=== PATIENT | male | born 1945 | race African-American/Black ===

== ENCOUNTER 2018-02-16 12:08 | Outpatient (CLI) | payer MEDICARE ==
[2018-02-16 13:00] LABS: Blood Urea Nitrogen 11 mg/dL (9-20)
[2018-02-16] MEDS ORDERED: NACL 0.9% 50 ML ONE (13:16)
--- NOTE | 2018-02-16 17:04 | Cat Scan Report ---
FINAL REPORT EXAM: CT NECK W CON HISTORY: DYSPHAGIA TECHNIQUE: Spiral CT scanning of the neck performed after the uneventful administration of IV contrast. Multiplanar reformations. PRIORS: None. FINDINGS: Lobular soft tissue enlargement of the adenoids and bilateral palatine tonsils, left greater than right, with edema or induration and heterogeneous enhancement. No discrete, ring-enhancing or loculated fluid collection. Considerable concentric narrowing of oropharynx at this level. Partial effacement of bilateral parapharyngeal spaces. No other discrete mass or significant adenopathy. The master scheduler, parotid, carotid, retropharyngeal and prevertebral spaces are without significant abnormality. The submandibular and sublingual spaces are grossly unremarkable. Normal appearing larynx, trachea, thyroid gland and thoracic inlet. Mild levoconvex curvature and degenerative change in the cervical spine. IMPRESSION: 1. Findings which may represent nonspecific postinflammatory change involving the adenoids and bilateral palatine tonsils, including pharyngitis. Angioedema secondary to anaphylaxis and neoplastic or metastatic disease are also diagnostic considerations. Exact etiology uncertain, and clinical correlation along with followup suggested. 2. No discrete abscess.
--- NOTE | 2018-02-16 17:11 | Cat Scan Report ---
FINAL REPORT EXAM: CT CHEST W CON HISTORY: DYSPHAGIA TECHNIQUE: Spiral CT scanning of the chest after the uneventful administration of IV contrast. Multiplanar reformations. PRIORS: None. FINDINGS: Chest: The lungs show no discrete parenchymal mass, focal consolidation or pleural effusions. No apparent pneumothorax. Mild cardiomegaly. Moderate coronary artery calcifications. Small hiatal hernia. No apparent aneurysm, pseudoaneurysm or aortic dissection. No significant lymph node enlargement or axillary adenopathy. Multiple hypodensities noted in the liver probably representing cysts, largest measuring approximately 1.8 cm in the right lobe posteromedially. Probable small left renal cysts. Remainder of visualized upper abdomen grossly unremarkable. Degenerative change in the thoracic spine. IMPRESSION: 1. No acute consolidation. 2. Cardiomegaly and coronary artery calcifications.
--- NOTE | 2018-02-16 17:34 | Emergency Department Report ---
HPI - HPI HPI: I was called by radiologist for critical findings on CT neck performed in the outpatient setting. The ordering physician Dr. Guerrero was not available according to radiology department. Radiologist was concerned for inflammation in the oropharynx. He did explain that airway was patent. I did review the CT findings of the neck and chest. I spoke with Alistair Krause caregiver and nephew by phone. Patient has had dysphagia and poor appetite for 3 weeks. He does not have any trouble breathing. Caregiver explained that Dr. Guerrero was concerned for cancer. I informed caregiver to come to ER if Mr. Krause had any discomfort especially with breathing. Caregiver will arranged f/u with Dr. Guerrero or Dr. Michael Lockwood. ED Review of Systems ROS: Stated complaint: Other details as noted in HPI ED Medical Decision Making - Lab Data Result diagrams: 02/16/18 12:47 Critical care attestation.: If time is entered above; I have spent that time in minutes in the direct care of this critically ill patient, excluding procedure time. ED Disposition Clinical Impression: Abnormal CT scan, neck, Dysphagia Disposition: PAT REG,NO TRIAGE Is pt being admited?: No Does the pt Need Aspirin: No
== END 2018-02-16 12:09 | disposition home or self-care (01) ==
LOC: CT 12:08
PROVIDERS: ATTEND Otolaryngology
DX: I51.7 Cardiomegaly (principal); I25.10 Atherosclerotic heart disease of native coronary artery without angina pectoris; M47.894 Other spondylosis, thoracic region; M47.892 Other spondylosis, cervical region; M43.8X2 Other specified deforming dorsopathies, cervical region; T78.2XXA Anaphylactic shock, unspecified, initial encounter
CPT/HCPCS: 36415; 70491; 71260; 82565; 84520; Q9967